=== PATIENT | female | born 1960 | race Caucasian/White ===

== ENCOUNTER → 2017-01-21 | Outpatient (CLI) | payer OTHER ==
[~2017-01-21] MED LIST: LEVO112T2 PO
== END | disposition home or self-care (01) ==
LOC: CFH 15:38
PROVIDERS: ATTEND Internal Medicine
DX: Z12.31 Encounter for screening mammogram for malignant neoplasm of breast (principal); N60.02 Solitary cyst of left breast
CPT/HCPCS: G0202

== ENCOUNTER 2018-04-16 20:40 | Emergency (ER) | payer OTHER ==
[~2018-04-16] VITALS: Ht 162.6 cm; Wt 72.4 kg
[2018-04-16] MEDS ORDERED: AMOXICILLIN/CLAV 875-125MG TABLET PO STA (20:54)
[2018-04-16] MEDS ORDERED: AMOXICILLIN/CLAV 875-125MG TABLET ONE (20:59)
[2018-04-16] MEDS ORDERED: DIPH,PERTUSS(ACELL),TET VAC/PF 0.5 ML IM-VACC ONE ×2 (20:59→21:00)
[2018-04-16] MEDS ORDERED: BACITRACIN ZINC OINT 500U/GM, 0.9 GM ONE (21:02)
[2018-04-16 21:51] VITALS: BP 124/74
== END 2018-04-16 21:54 | disposition home or self-care (01) ==
LOC: ED 21:48
DX: S60.571A Other superficial bite of hand of right hand, initial encounter (principal); W54.0XXA Bitten by dog, initial encounter; Y93.89 Activity, other specified; Y99.8 Other external cause status; Y92.009 Unspecified place in unspecified non-institutional (private) residence as the place of occurrence of the external cause
CPT/HCPCS: 90471; 90715; 99284; 99292